=== PATIENT | male | born 1940 | race Caucasian/White ===

== ENCOUNTER 2018-11-27 16:59 | Emergency (ER) | payer OTHER ==
[2018-11-27] MEDS ORDERED: KETOROLAC TROMETHAMINE 30MG/ML ONE (17:39)
== END 2018-11-27 20:41 | disposition left against medical advice (07) ==
LOC: EDBD 16:59 → EDH 16:59
DX: M79.604 Pain in right leg (principal); E11.9 Type 2 diabetes mellitus without complications; J44.9 Chronic obstructive pulmonary disease, unspecified; I25.10 Atherosclerotic heart disease of native coronary artery without angina pectoris; Z72.0 Tobacco use; W18.39XA Other fall on same level, initial encounter; Y93.89 Activity, other specified; Y92.89 Other specified places as the place of occurrence of the external cause; Y99.8 Other external cause status
CPT/HCPCS: 73552; 73590; 96372; 99283; J1885